=== PATIENT | male | born 1940 | race Caucasian/White ===

== ENCOUNTER 2017-04-24 07:50 | Outpatient (CLI) | payer OTHER | END 2017-04-24 07:52 | disposition home or self-care (01) | LOC: NUCLEAR 07:50 | DX: I25.10 Atherosclerotic heart disease of native coronary artery without angina pectoris (principal) | CPT/HCPCS: 78452; 93017; A9500 ==

== ENCOUNTER 2021-05-02 13:02 | Emergency (ER) | payer OTHER ==
[~2021-05-02] VITALS: Ht 167.6 cm; Wt 64.4 kg
[2021-05-02] MEDS ORDERED: SINGULAIR10 MG PO (13:17)
[2021-05-02] MEDS ORDERED: NORVASC5 MG PO (13:17)
[2021-05-02] MEDS ORDERED: CRESTOR10 MG PO (13:18)
[2021-05-02] MEDS ORDERED: SYMBICORT 16010.2 GM (13:18)
[2021-05-02] MEDS ORDERED: PRILOSEC OTC20 MG (13:18)
== END 2021-05-02 14:38 | disposition home or self-care (01) ==
LOC: ER 13:02
DX: K64.4 Residual hemorrhoidal skin tags (principal); I10 Essential (primary) hypertension; Z88.8 Allergy status to other drugs, medicaments and biological substances; Z88.6 Allergy status to analgesic agent; Z91.011 Allergy to milk products

== ENCOUNTER 2021-12-06 07:28 | Outpatient (CLI) | payer OTHER ==
[~2021-12-06 07:28] MED LIST: CRESTOR10 MG PO; NORVASC5 MG PO; PRILOSEC OTC20 MG; SINGULAIR10 MG PO; SYMBICORT 16010.2 GM
== END 2021-12-06 07:30 | disposition home or self-care (01) ==
LOC: NUCLEAR 07:28
PROVIDERS: ATTEND Internal Medicine Cardiovascular Disease
DX: I20.9 Angina pectoris, unspecified (principal); Z88.6 Allergy status to analgesic agent; Z91.011 Allergy to milk products; Z88.5 Allergy status to narcotic agent; Z88.8 Allergy status to other drugs, medicaments and biological substances
CPT/HCPCS: 78452; 93017; A9500

== ENCOUNTER 2021-12-06 07:34 | Outpatient (CLI) | payer OTHER | END 2021-12-06 07:39 | disposition home or self-care (01) | LOC: LAB 07:34 | PROVIDERS: ATTEND Internal Medicine Cardiovascular Disease | DX: U07.1 COVID-19 (principal); B34.1 Enterovirus infection, unspecified ==

== ENCOUNTER 2025-01-31 09:33 | Outpatient (CLI) | payer OTHER | END 2025-01-31 09:34 | disposition home or self-care (01) | LOC: NUCLEAR 09:33 | PROVIDERS: ATTEND Internal Medicine Cardiovascular Disease | DX: I11.9 Hypertensive heart disease without heart failure (principal); I49.1 Atrial premature depolarization ==